=== PATIENT | male | born 1985 | race Caucasian/White ===

== ENCOUNTER 2020-10-28 14:28 | Emergency (ER) | payer OTHER ==
[~2020-10-28] VITALS: Ht 170.2 cm; Wt 81.8 kg
[2020-10-28] MEDS ORDERED: OMEP20 PO (14:47)
[2020-10-28 17:48] VITALS: BP 136/84
== END 2020-10-28 17:48 | disposition home or self-care (01) ==
LOC: EMS 14:36
DX: U07.1 COVID-19 (principal); R50.9 Fever, unspecified; R05 Cough; R19.7 Diarrhea, unspecified; F41.9 Anxiety disorder, unspecified
CPT/HCPCS: 99283; U0003